=== PATIENT | female | born 1970 | race Caucasian/White ===

== ENCOUNTER 2017-08-16 09:12 | Inpatient (IN) ==
[2017-08-16] MEDS ORDERED: CeFAZolin Pre 2,000 MG/100 ML 2,000 MG/100 ML BAG IVPB ONE (09:32)
[2017-08-16] MEDS ORDERED: Lidocaine -MPF 1% 2 ML VIAL ID ONE (09:32)
[2017-08-16] MEDS ORDERED: Ringers Solution, Lactated 1,000 ML IVC SCH (09:45)
--- NOTE | 2017-08-16 09:49 | Anesthesia Evaluation PreOp ---
Date of Encounter: 08/16/17 Time of Encounter: 09:56 - Past History Planned Operation: LAVH Cardiac History: Denies any Significant Hx Pulmonary History: Denies Any Significant HX LINUX SUPPORT ENGINEER History: Denies Any Significant HX Other Medical History: Denies Any Significant HX Anesthesia History: No Prior Anesthetic Complications, Past Anesthesia Test: Negative (08/12/2017) Alcohol Use: none Drug use: none Medications and Allergies Fluticasone Propionate Nasal [Flonase] 120 spray NS DAILY #1 bottle 08/01/17 [Rx ] Loratadine/Pseudophed (12 HR) [Claritin D (12HR)] 1 each PO BID #20 tab.er.12h 08/01/17 [Rx] Magic Mouthwash [Magic Mouthwash BLM] 10 ml PO QID #240 ml 08/01/17 [Rx] 3 Allergy/AdvReac Type Severity Reaction Status Date / Time No Known Allergies Allergy Verified 08/01/17 13:49 - Meds/Allergy Pre-op Review Medications Reviewed: Yes Allergies Reviewed: Yes Beta Blockers on Current Med List: No Anesthesia Results - Labs Laboratory Tests 04/23/17 08/12/17 08/12/17 12:39 08:20 08:20 WBC 7.2 Hgb 11.9 Hct 37.4 Plt Count 352 Sodium 141 Potassium 3.3 L BUN 7 Creatinine 0.73 Serum , Qual Negative Anesthesia Exam O2 Sat Height 1.63 m Height 1.63 m Height 1.63 m Weight 79.379 kg Weight 79.379 kg Weight 79.379 kg O2 Sat by Pulse Oximetry 99 Vital Signs Temp Pulse Resp BP Pulse Ox 97.9 F 83 18 124/81 99 08/16/17 09:58 08/16/17 09:58 08/16/17 09:58 08/16/17 09:58 08/16/17 09:58 Height: 5'4'' Weight: 175 lbs NPO (# of Hours): 8 Pain Scale: 0 Pain Scale Used: Numeric (1 - 10) - HEENT Pupil (Motor): EOMI Mallampati: II Teeth: Normal Oral Opening: Greater than 3 - LINUX SUPPORT ENGINEER LOC: Oriented LINUX SUPPORT ENGINEER Motor: Normal RUE, Normal LUE, Normal RLE, Normal LLE, Normal Face LINUX SUPPORT ENGINEER Sensory: Normal: RUE, LUE, RLE, LLE, Face - Cardiac Rhythm: Regular Murmur: None - Pulmonary Breath Sounds: bilateral Clear Respiratory Effort: Symmetrical Anesthesia Assess/Plan ASA Score: 1 Modified Samara Scale for Level of Consciousness: Cooperative, oriented, and tranquil Anesthetic Plan: General Monitoring Plan: Standard Monitors Recovery Plan: PACU
[2017-08-16] MEDS ORDERED: *HR* FentaNYL (PF) 100 MCG/2 ML VIAL ONE (10:17)
[2017-08-16] MEDS ORDERED: Neostigmine Methylsulfate 3 MG/3 ML SYRINGE ONE (10:17)
[2017-08-16] MEDS ORDERED: Dexamethasone 4 MG/ML VIAL ONE (10:17)
[2017-08-16] MEDS ORDERED: Ondansetron 4 MG/2 ML VIAL ONE (10:17)
[2017-08-16] MEDS ORDERED: *HR* Propofol 200 MG/20 ML VIAL IVP ONE (10:17)
[2017-08-16] MEDS ORDERED: *HR* Rocuronium Bromide 50 MG/5 ML VIAL ONE ×2 (10:17)
[2017-08-16] MEDS ORDERED: *HR* Phenylephrine 10 MG/ML VIAL ONE (10:17)
[2017-08-16] MEDS ORDERED: Lidocaine -MPF 4% 5 ML AMPUL ONE ×2 (10:17)
[2017-08-16] MEDS ORDERED: Ketorolac 30 MG/ML VIAL ONE (10:17)
[2017-08-16] MEDS ORDERED: *HR* Midazolam HCl 2 MG/2 ML VIAL ONE (10:17)
[2017-08-16] MEDS ORDERED: Lidocaine -MPF 2% 2 ML VIAL ONE (10:17)
[2017-08-16] MEDS ORDERED: *HR* Succinylcholine 200 MG/10 ML VIAL IVP ONE (10:17)
--- NOTE | 2017-08-16 10:33 | History & Physical Report ---
Date of Encounter: 08/16/17 Time of Encounter: 10:32 24 Hour HP Update - Instructions Instructions: If the History and Physical is less than 30 days old and was completed prior to A.M. admission and or procedure and has NOT been updated on calendar day of procedure please complete this update prior to performing procedure. - Update Patient reports changes in Medical Condition: No Changes in examination, assessment, or condition: No Changes in Medication: No Preop tests/diagnostics Reviewed: No Surgery Remains Indicated: Yes Consent for Planned Operative Procedure(s) Verified: Yes - Pre-Operative Checklist Preoperative Checklist Indicated: Yes Prophylactic Antibiotic Ordered: Yes Home Medications Include Beta Darek: No Beta Darek Taken Today (Day of Surgery): No Beta Darek Taken Yesterday (Day Prior to Surgery): No Is VTE Prophylaxis Indicated?: Yes
[2017-08-16] MEDS ORDERED: Lidocaine/EPI 1:100k 1% 20 ML VIAL ONE (10:43)
[2017-08-16 12:47] LABS: Basophils # 0.1 K/mcL (0.0-0.2); Basophils % 0.8 %; Eosinophils # 0.3 K/mcL (0.0-0.6); Hematocrit 36.6 % (35.3-44.9); Hemoglobin 11.2 g/dL (11.5-15.4); Immature Granulocytes % 0.3 % (0-4); Lymphocytes # 2.1 K/mcL (0.6-4.6); Lymphocytes % 29.7 %; Mean Corpuscular HGB Conc 30.6 g/dL (31.6-35.5); Mean Corpuscular Volume 88.2 fL (83.0-100.0); Mean Platelet Volume 10.3 fL (9.4-12.4); Monocytes # 0.4 K/mcL (0.0-1.3); Monocytes % 5.3 %; Neutrophils # 4.3 K/mcL (1.6-8.9); Platelet Count 268 K/mcL (140-400); Red Blood Count 4.15 M/mcL (3.82-4.97); Red Cell Distribution Width 13.3 % (11.5-14.5); Segmented Neutrophils % 59.9 %
[2017-08-16 12:55] LABS: BUN/Creatinine Ratio 9 (6-26); Blood Urea Nitrogen 7 mg/dL (7-20); Calcium 8.4 mg/dL (8.6-10.8); Carbon Dioxide 14 mEq/L (19-29); Chloride 112 mEq/L (98-109); Glucose 104 mg/dL (70-99); Osmolality,Calculated 282 (280-300); Potassium 4.1 mEq/L (3.5-4.5); Sodium 137 mEq/L (136-145); eGFR For African Americans > 60 (> 60); eGFR For Non-African Americans > 60 (> 60)
--- NOTE | 2017-08-16 15:09 | Electrocardiograph Report ---
[place] [id number] Test Date: 2017-08-16 Pat Name: Brenda Forbes Department: 106 Room: Gender: F Shank Burnisher: MELONIE : 1970 Requested By: Uriah Hay Order Number: [id number] Reading MD: Conor Bowen MD Measurements Intervals [place] Rate: 78 P: 58 [place]: 146 QRS: 16 QRSD: 92 T: 24 QT: 392 QTc: 426 Interpretive Statements SINUS RHYTHM Electronically Signed On 08-16-2017 15:08:05 EDT by Conor Bowen MD
--- NOTE | 2017-08-16 16:30 | OB/GYN Procedure Note ---
OB-HORN PLAYER: Procedure - Diagnosis Date of procedure: 08/16/17 Pre-op diagnosis: Enlarged fibroid uterus, menometrorrhagia, iron deficiency anemia Post-op diagnosis: other (Profound bradycardia during seizure after insufflation ) - Procedure Procedure: Diagnostic laparoscopy with insertion of 3 trochars during attempted hyster Surgeon: Uriah Hay Recovery Coordinator: Beatriz Graves Anesthesia Type: General Estimated blood loss (cc): 5 Fluids: crystalloid Specimens collected: None Disposition: PACU Findings: Enlarged fibroid uterus normal fallopian tubes and ovaries Narrative: Patient is a 47-year-old female with enlarged fibroid uterus very heavy prolonged menstrual cycles. Has required iron transfusions secondary to profound anemia. She is failed conservative medical and hormonal management. She presents for laparoscopic-assisted vaginal hysterectomy with desire for ovarian preservation. She was aware of operative risks and signed appropriate consent. Description procedure: Patient was taken operating room where general anesthesia was administered. She is prepped draped in usual sterile fashion in low dorsolithotomy position. Cervix is visualized and grasped with single- tooth tenaculum. [place] uterine manipulator was placed in the cervix. 5 mm trocar was inserted below the umbilicus without difficulty. Under direct visualization second 5 mm trochars placed in the right mid abdomen and third 5 mm trochars placed in the left mid abdomen. Insufflation was performed. During insufflation anesthesia informed me of profound bradycardia to less than 30's. Pneumoperitoneum was immediately released and heart rate immediately improved to sinus rhythm in the 70s. Decision was made to again performed insufflation manually after performing insufflation again patient had profound bradycardia. Consideration was made to proceed immediately with laparotomy with hopes that she would tolerate this better. I did not attempt to speak with patient's but he was not available and was unable to be reached on cell phone. I did decide to cancel procedure until cardiac evaluation was performed. Trochars removed and skin edges were approximated with 4-0 Vicryl. All sponge counts counts are correct patient was taken recovery in good condition.
[2017-08-16] MEDS ORDERED: Ondansetron 4 MG/2 ML VIAL IVP PRN (17:11)
[2017-08-16] MEDS ORDERED: Naloxone 0.4 MG/ML INJ IVP PRN (17:11)
[2017-08-16] MEDS ORDERED: *HR* OxyCODONE/APAP 5/325 TABLET PO PRN (17:11)
--- NOTE | 2017-08-16 17:19 | Cardiology Consult Note ---
Date of Encounter: 08/16/17 Time of Encounter: 17:15 Assessment and Plan (1) Bradyarrhythmia on pre-operative cardiovascular examination Current Visit: Yes Status: Acute Per Cardiology: Reported bradycardia intraoperatively during insufflation for laparoscopic hysterectomy on 2 separate occurrences. ECG shows sinus rhythm in the 70s. No rhythm strips available for review. Currently not on telemetry. Recommend transfer to bed available for telemetry monitoring overnight. We'll check TSH. Check echo. Recent test negative. Further recommendations pending results. Discussed and reviewed with Dr. Loera. (2) DUB (dysfunctional uterine bleeding) Current Visit: No Status: Acute Per Cardiology: Per OB mangement. Discussion w patient/family: The assessment and plan as outlined above was discussed with the patient and/or family members who expressed understanding and agreement. All questions were answered. Thank you for involving us in the care of your patient. Please call with any questions. History of Present Illness Consult date: 08/16/17 Consult reason: Bradycardia Chief complaint: Low Hr in surgery History of present illness: Ms. Forbes is a 47 year old female with a relevant past medical history of dysfunctional uterine bleeding pending hysterectomy and iron deficiency anemia. Cardiology consult for episodes of bradycardia intraoperatively laparoscopic hysterectomy during insufflation x 2. Surgery postponed. Patient reports pending open surgery tomorrow. Prior to surgery she denies any chest pain, short of breath, palpitations. Reports chronic fatigue she attributes to her anemia due to abnormal uterine bleeding. She denies any smoking history. Reports history of "nodule on her thyroid" follows with outside facility and not taking medication for hypothyroidism. She denies any history of bradycardia or abnormal arrhythmias. Denies any palpitations, dizziness, syncope. Family history with father with ND in his 60s. Past Med Surg Social Fam HX - Past Medical History Attestation: Yes The following information was validated with the patient. Source: patient, old records reviewed, obtained from family Medical history: non-contributory, other (anemia) Psychiatric history: no psych history - Past Surgical History Surgical History: no surgical history - Social History Smoking Status: Unknown if ever smoked Smokeless Tobacco Status: No Alcohol use: none Drug use: none Medications and Allergies Ferrous Sulfate 325 mg PO DAILY 08/16/17 [History] 3 Allergy/AdvReac Type Severity Reaction Status Date / Time No Known Allergies Allergy Verified 08/16/17 10:16 All Systems Review: A 10-system review of systems was performed and is negative for pertinent findings except as documented above in the HPI. - Cardiovascular Cardiovascular: as per HPI Physical Examination Vital Signs, Last 4 Hours Temp Pulse Resp BP Pulse Ox 08/16/17 15:00 94 16 120/80 97 08/16/17 14:30 72 16 126/78 100 08/16/17 13:52 97.4 F L 82 16 121/79 99 08/16/17 13:37 97.5 F L 82 18 138/94 99 08/16/17 13:27 74 16 122/78 100 08/16/17 13:17 81 18 126/85 100 General: Conversant, No Apparent Distress HEENT: Atraumatic, Normocephaly, Mucus Membranes Moist Neck: No JVD, Normal carotid pulses Cardiac: Reg Rate and Rhythm, Normal S1 and S2, No Murmur Lungs: Normal Breath Sounds, No Wheeze, Rales, Rhonchi Neuro: Alert and responsive, No focal deficits noted Abdomen: Soft, Non-Tender Skin: No rashes noted on visualized skin Musculoskeletal: No Chest Wall Tenderness Extremities: No Clubbing, No Cyanosis, No Edema, Normal Pulses Results 08/16/17 12:34 08/16/17 12:34 Lab Results Laboratory Tests 08/12/17 08:20 Serum , Qual Negative - Imaging and Cardiology Echo: pending - EKG Interpretation EKG results cardiology: personally reviewed, normal ECG, sinus rhythm, other ( Not currently on telemetry, no rhythm strips noted from OR) Consult Discharge Plan - Plan Referrals: Ese Cobb, HUMAN RESOURCE ADVISER [Primary Care Provider] -
--- NOTE | 2017-08-16 22:21 | Internal Med History&Physical ---
Date of Encounter: 08/16/17 Time of Encounter: 21:50 Assessment and Plan (1) Bradyarrhythmia on pre-operative cardiovascular examination Current visit: Yes Status: Acute Cardiology on board admission to medicine requested for tele monitoring current NSR continue to closely monitor (2) Iron deficiency Current visit: No Status: Chronic H&H low but acceptable continue to monitor (3) Anemia Current visit: No Status: Chronic Qualifiers: Anemia type: iron deficiency Iron deficiency anemia type: chronic blood loss Qualified Code(s): D50.0 - Iron deficiency anemia secondary to blood loss (chronic) (4) DUB (dysfunctional uterine bleeding) Current visit: No Status: Acute Scheduled for hysterectomy in am (later in the day) care rep following NPO after breakfast as per prompt care rn recommendations (5) DVT prophylaxis Current visit: Yes Status: Acute SCD and early ambulation Internal Medicine - H&P: HPI Chief complaint: transferred from care rep service for bradycardia Admitted From: Home Plans for Post Hospital Care: Home History of present illness: Ms. Forbes is a 47 year old female with history of dysfunctional uterine bleeding secondary to fibroids and iron deficiency anemia who is transferred from prompt care rn service for bradycardia. Patient was scheduled for hysterectomy today and she was found to be bradycardic intraoperatively laproscopic hysterectomy during insufflation, due to which surgery was postponed and cardiology consultation was requested. As per cardiology recommendation, tele monitoring overnight was recommended and patient was requested admission to medicine floor. Patient is noted to be in sinus rhythm, denies any headache, chest pain, palpitations, sob, abd pain, n/v, fever, or chills. Social history: never smoker Code status: Full code Past Med Surg Social Fam HX - Past Medical History Medical history: non-contributory, other (anemia) Psychiatric history: no psych history - Past Surgical History Surgical History: no surgical history - Social History Smoking Status: Unknown if ever smoked Smokeless Tobacco Status: No Alcohol use: none Drug use: none Internal Medicine - H&P: Meds Ferrous Sulfate 325 mg PO DAILY 08/16/17 [History] 3 Allergy/AdvReac Type Severity Reaction Status Date / Time No Known Allergies Allergy Verified 08/16/17 10:16 All Systems PM: A 10-system review of systems was performed and is negative for pertinent findings except as documented above in the HPI. - Constitutional Constitutional: as per HPI - Constitutional Vitals: Temp Pulse Resp BP Pulse Ox 98.2 F 106 16 133/84 98 08/16/17 19:00 08/16/17 19:00 08/16/17 19:00 08/16/17 19:00 08/16/17 19:00 General appearance: Present: cooperative, A&O X 3, no acute distress, answers questions appropriately - Head Head exam: Present: atraumatic, normocephalic - Eye Eye exam: Present: conjuntiva pink, sclera anicteric - Respiratory Respiratory exam: Present: CTAB. Absent: accessory muscle use, rales, rhonchi, wheezes - Cardiovascular Cardiovascular exam: Present: RRR, +S1, +S2. Absent: diastolic murmur, gallop, rubs, systolic murmur - GI/Abdominal GI/Abdominal exam: Present: normal bowel sounds, soft, no peritoneal signs. Absent: distended, tenderness - Extremities Exam Extremities exam: Present: warm, radial pulses palpable and symmetrical. Absent : calf tenderness, cyanotic, pedal edema - Neurological Exam Neurological exam: Present: alert, oriented X3 - Psychiatric Psychiatric exam: Present: normal affect, normal mood Internal Med - H&P Results - Labs CBC & Chem 7: 08/16/17 12:34 08/16/17 12:34 Labs: Short CBC 08/16/17 Range/Units 12:34 WBC 7.2 (4.3-11.1) K/mcL Hgb 11.2 L (11.5-15.4) g/dL Hct 36.6 (35.3-44.9) % Plt Count 268 (140-400) K/mcL Neutrophils # 4.3 (1.6-8.9) K/mcL BMP 08/16/17 12:34 Sodium 137 Potassium 4.1 Chloride 112 H Carbon Dioxide 14 L BUN 7 Creatinine 0.74 Glucose 104 H Calcium 8.4 L - VTE Documentation of Mechanical Device: Intermittent pneumatic compression device
[2017-08-16] MEDS: Ondansetron 4 MG/2 ML VIAL IVP SCH (23:32)
[2017-08-17 04:33] LABS: Basophils # 0.1 K/mcL (0.0-0.2); Basophils % 0.6 %; Eosinophils % 0.3 %; Hematocrit 34.6 % (35.3-44.9); Hemoglobin 11.1 g/dL (11.5-15.4); Immature Granulocytes % 0.3 % (0-4); Lymphocytes # 1.7 K/mcL (0.6-4.6); Lymphocytes % 19.2 %; Mean Corpuscular HGB Conc 32.1 g/dL (31.6-35.5); Mean Corpuscular Hemoglobin 27.8 pg (28.0-33.3); Mean Corpuscular Volume 86.7 fL (83.0-100.0); Mean Platelet Volume 10.6 fL (9.4-12.4); Monocytes # 0.7 K/mcL (0.0-1.3); Monocytes % 7.8 %; Neutrophils # 6.5 K/mcL (1.6-8.9); Platelet Count 317 K/mcL (140-400); Red Blood Count 3.99 M/mcL (3.82-4.97); Red Cell Distribution Width 13.4 % (11.5-14.5); Segmented Neutrophils % 71.8 %
[2017-08-17 04:47] LABS: BUN/Creatinine Ratio 12 (6-26); Blood Urea Nitrogen 9 mg/dL (7-20); Calcium 8.6 mg/dL (8.6-10.8); Carbon Dioxide 21 mEq/L (19-29); Chloride 109 mEq/L (98-109); Glucose 107 mg/dL (70-99); Osmolality,Calculated 287 (280-300); Phosphorous 2.9 mg/dL (2.3-4.7); Potassium 3.7 mEq/L (3.5-4.5); Sodium 139 mEq/L (136-145); eGFR For African Americans > 60 (> 60); eGFR For Non-African Americans > 60 (> 60)
[2017-08-17] MEDS: Ondansetron 4 MG/2 ML VIAL IVP SCH ×3 (04:52→16:08)
--- NOTE | 2017-08-17 08:59 | Cardiology Progress Note ---
Date of Encounter: 08/17/17 Time of Encounter: 09:00 Assessment and Plan (1) Bradyarrhythmia on pre-operative cardiovascular examination Current Visit: Yes Status: Acute Per Cardiology: Reported bradycardia intraoperatively during insufflation for laparoscopic hysterectomy on 2 separate occurrences. ECG shows sinus rhythm in the 70s. Telemetry showed no bradycardic events overnight with average heart rate in the 70s and lowest rate 58. TSH and magnesium stable. Echo showed EF 60%, no significant valvular dysfunction, NSWMA, mild diastolic dysfunction. Cardiology will sign off, recalls as needed, follow-up with PCP. All questions answered. (2) DUB (dysfunctional uterine bleeding) Current Visit: Yes Status: Acute Per Cardiology: Per OB mangement. Pending surgery today. Discussion w patient/family: The assessment and plan as outlined above was discussed with the patient who expressed understanding and agreement. All questions were answered. Thank you for involving us in the care of your patient. Please call with any questions. Subjective Principal diagnosis: Bradycardia Interval history: Patient denies any concerns or complaints overnight. Reports pending surgery this evening. Objective Vital Signs, Last 4 Hours Temp Pulse Resp BP Pulse Ox 08/17/17 08:50 96 08/17/17 07:34 98.5 F 79 16 129/83 96 General: Conversant, No Apparent Distress Cardiac: Reg Rate and Rhythm, Normal S1 and S2, No Murmur Extremities: No Edema Results 08/17/17 03:31 08/17/17 03:31 Lab Results Laboratory Tests 08/17/17 08/17/17 03:31 03:31 Magnesium 2.0 TSH 0.379 Active Medications Docusate Sodium (Colace) 100 mg PO BID [facility] Stop: 02/15/18 21:01 Last Admin: 08/17/17 08:46 Dose: Not Given Naloxone HCl (Narcan) 0.4 mg IVP Q2MIN PRN PRN Reason: Opioid Reversal Stop: 02/15/18 17:12 Ondansetron HCl (Zofran) 4 mg IVP ONCE PRN PRN Reason: Nausea And Vomiting Stop: 02/15/18 17:12 Ondansetron HCl (Zofran) 4 mg IVP Q6HR OG PRN Reason: Protocol Stop: 02/16/18 00:01 Last Admin: 08/17/17 04:52 Dose: Not Given Oxycodone/Acetaminophen (Percocet 5/325) 1 each PO Q4HR PRN PRN Reason: Severe Pain (7-10) Stop: 02/15/18 17:12 - Imaging and Cardiology Echo: report reviewed - EKG Interpretation EKG results cardiology: other (SR on tele, avg HR 76, lowest 58, currently SR 74 ) - VTE Documentation of Mechanical Device: Intermittent pneumatic compression device Consult Discharge Plan - Plan Referrals: Ese Cobb, RUCHING MACHINE OPERATOR [Primary Care Provider] -
--- NOTE | 2017-08-17 10:16 | Internal Med Progress Note ---
Date of Encounter: 08/17/17 Time of Encounter: 09:15 - Assessment and plan (1) Bradyarrhythmia on pre-operative cardiovascular examination Current Visit: Yes Status: Acute Assessment and plan: Pt with reported bradycardia during preparation for surgical procedure. Cardiology is following. Echocardiogram with LVEF of 60%, normal LV systolic function, evidence of mild LVDD and no significant valvular dysfunction. EKG yesterday showed normal sinus rhythm rate of 78, UT interval 146 QRS 92, QT 392 , QTC 426. Patient denies chest pain, pressure, nausea vomiting, diaphoresis, or shortness of breath. She appears to be normal sinus on the monitor with rate in the 80s. I appreciate cardiology consultation and recommendations. They will be signing off. (2) Iron deficiency Current Visit: No Status: Chronic Assessment and plan: Pt takes Ferrous Sulfate at home. Continue to monitor. (3) Anemia Current Visit: Yes Status: Chronic Assessment and plan: Hgb 11.1 today. Stable and at pt's baseline. 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 Pt to have hysterectomy later today by Dr. Hay. (5) DVT prophylaxis Current Visit: Yes Status: Acute Assessment and plan: SCD and early ambulation. - Time Spent With Patient less than 15 minutes - Subjective Interval history: Pt was seen and assessed at 0915 this a.m. She is alert and oriented, was up eating breakfast, is aware of NPO status for pending OB surgery. She denies chest pain, n/v/d, headache or blurred vision. Reports increased abd tenderness since yesterday, but states that it is still ok. - Constitutional Vitals: Temp Pulse Resp BP Pulse Ox 98.5 F 79 16 129/83 96 08/17/17 07:34 08/17/17 07:34 08/17/17 07:34 08/17/17 07:34 08/17/17 08:50 General appearance: Present: cooperative, A&O X 3, pleasant, no acute distress, answers questions appropriately - Head Head exam: Present: atraumatic, normal inspection, normocephalic - Eye Eye exam: Present: normal appearance, conjuntiva pink, sclera anicteric - Neck Neck exam general surgery: Present: normal inspection, supple, trachea midline. Absent: lymphadenopathy, tenderness - Respiratory Respiratory exam: Present: CTAB. Absent: accessory muscle use, rales, rhonchi, wheezes - Cardiovascular Cardiovascular exam: Present: RRR, +S1, +S2. Absent: diastolic murmur, gallop, rubs, systolic murmur - GI/Abdominal GI/Abdominal exam: Present: normal bowel sounds, soft, tenderness, no peritoneal signs. Absent: distended, guarding, hepatomegaly - Extremities Exam Extremities exam: Present: normal capillary refill, warm, radial pulses palpable and symmetrical. Absent: calf tenderness, cyanotic, pedal edema, tenderness - Neurological Exam Neurological exam: Present: alert, oriented X3, no focal deficits. Absent: facial droop, speech deficit - Skin Skin exam: Present: dry, intact, normal color, warm. Absent: rash Internal Medicine: Result - Labs CBC & Chem 7: 08/17/17 03:31 08/17/17 03:31 Labs: Short CBC 08/16/17 08/17/17 Range/Units 12:34 03:31 WBC 7.2 9.1 (4.3-11.1) K/mcL Hgb 11.2 L 11.1 L (11.5-15.4) g/dL Hct 36.6 34.6 L (35.3-44.9) % Plt Count 268 317 (140-400) K/mcL Neutrophils # 4.3 6.5 (1.6-8.9) K/mcL BMP 08/16/17 08/17/17 12:34 03:31 Sodium 137 139 Potassium 4.1 3.7 Chloride 112 H 109 Carbon Dioxide 14 L 21 BUN 7 9 Creatinine 0.74 0.76 Glucose 104 H 107 H Calcium 8.4 L 8.6 - Impressions Impressions Echocardiogram 08/16/17 17:19 Impressions: LVEF 60%. Normal left ventricular size and systolic function. There is evidence of mild diastolic dysfunction of the left ventricle. Normal right ventricular size and function. No significant valvular dysfunction. No pulmonary hypertension. Left Ventricular Wall Motion: Rest Echo Findings All wall segments showed normal motion. Findings: Study Quality * Technically adequate exam. ECG Findings * Normal sinus rhythm. Left Ventricle * LVEF 60%. * Normal LV chamber size, wall thickness and function. * Mild left ventricular diastolic dysfunction. Right Ventricle * Normal right ventricular structure and function. Left Atrium * Normal left atrial size. Right Atrium * Normal right atrial size. Aortic Valve * No aortic regurgitation. * Trileaflet aortic valve. * Normal aortic valve structure. * No aortic stenosis. Mitral Valve * Normal mitral valve structure. * No mitral regurgitation. * No mitral stenosis. Tricuspid Valve * Tricuspid valve not well visualized. * No tricuspid regurgitation. * Estimated RA pressure is 3 mmHg. Pulmonic Valve * Pulmonic valve is not well visualized. * No pulmonic stenosis. * No pulmonic regurgitation. Pulmonary Artery * Pulmonary artery not well visualized. Aorta * Normally sized aortic root. Pericardium * There is no pericardial effusion present. Interatrial Septum * No evidence of PFO by color Doppler. IVC * Normal IVC dimensions and inspiratory collapse. - VTE Documentation of Mechanical Device: Intermittent pneumatic compression device Consult Discharge Plan - Plan Referrals: Ese Cobb, [employer]PL[employer] PATR[employer] PILOT [Primary Care Provider] -
--- NOTE | 2017-08-17 16:03 | Anesthesia Evaluation PreOp ---
Date of Encounter: 08/17/17 Time of Encounter: 16:01 - Past History Planned Operation: FATUMA Cardiac History: Denies any Significant Hx Pulmonary History: Denies Any Significant HX DRILL GRINDER History: Denies Any Significant HX Other Medical History: Denies Any Significant HX Anesthesia History: No Prior Anesthetic Complications : No Test: Negative (08/12/2017) Alcohol Use: none Drug use: none Medications and Allergies Ferrous Sulfate 325 mg PO DAILY 08/16/17 [History] Fluticasone Propionate Nasal [Flonase] 2 spr NS DAILY 08/17/17 [History] 3 Allergy/AdvReac Type Severity Reaction Status Date / Time tramadol AdvReac Nausea Verified 08/17/17 02:03 - Meds/Allergy Pre-op Review Medications Reviewed: Yes Allergies Reviewed: Yes Beta Blockers on Current Med List: No Anesthesia Results - Labs 08/17/17 03:31 08/17/17 03:31 Echocardiogram Name: Brenda Forbes Date of Study: 08/16/2017 EV/EV echocardiogram Impressions: LVEF 60%. Normal left ventricular size and systolic function. There is evidence of mild diastolic dysfunction of the left ventricle. Normal right ventricular size and function. No significant valvular dysfunction. No pulmonary hypertension. Anesthesia Exam O2 Sat Height 1.63 m Weight 81.692 kg Weight 79.4 kg O2 Sat by Pulse Oximetry 97 O2 Sat by Pulse Oximetry 95 O2 Sat by Pulse Oximetry 96 O2 Sat by Pulse Oximetry 96 O2 Sat by Pulse Oximetry 96 O2 Sat by Pulse Oximetry 99 O2 Sat by Pulse Oximetry 98 O2 Sat by Pulse Oximetry 100 O2 Sat by Pulse Oximetry 97 O2 Sat by Pulse Oximetry 98 Vital Signs Temp Pulse Resp BP Pulse Ox 97.9 F 83 18 124/81 99 08/16/17 09:58 08/16/17 09:58 08/16/17 09:58 08/16/17 09:58 08/16/17 09:58 Height: 5'4'' Weight: 175# NPO (# of Hours): > 8 HRS Pain Scale: 0 Pain Scale Used: Numeric (1 - 10) - HEENT Pupil (Motor): Pupils equal, EOMI Mallampati: II Teeth: Normal Oral Opening: Greater than 3 - DRILL GRINDER LOC: Oriented DRILL GRINDER Motor: Normal RUE, Normal LUE, Normal RLE, Normal LLE, Normal Face DRILL GRINDER Sensory: Normal: RUE, LUE, RLE, LLE, Face - Cardiac Rhythm: Regular Murmur: None JVD: No Carotid Bruit: No - Pulmonary Breath Sounds: bilateral Clear Respiratory Effort: Symmetrical Anesthesia Assess/Plan ASA Score: 1 Modified [place] Scale for Level of Consciousness: Cooperative, oriented, and tranquil Anesthetic Plan: General Autologous Blood: Yes Monitoring Plan: Standard Monitors Recovery Plan: PACU
[2017-08-17] MEDS ORDERED: *HR* Propofol 200 MG/20 ML VIAL IVP ONE (16:25)
[2017-08-17] MEDS ORDERED: *HR* FentaNYL (PF) 100 MCG/2 ML VIAL ONE ×2 (16:25→18:03)
[2017-08-17] MEDS ORDERED: Lidocaine -MPF 2% 2 ML VIAL ONE (16:25)
[2017-08-17] MEDS ORDERED: Ondansetron 4 MG/2 ML VIAL ONE (16:25)
[2017-08-17] MEDS ORDERED: *HR* Midazolam HCl 2 MG/2 ML VIAL ONE (16:25)
[2017-08-17] MEDS ORDERED: *HR* Rocuronium Bromide 50 MG/5 ML VIAL ONE (16:25)
[2017-08-17] MEDS ORDERED: EPHEDrine 50 MG/ML VIAL ONE (18:06)
[2017-08-17] MEDS ORDERED: *HR* Labetalol 20 MG/4 ML SYRINGE IVP PRN (18:24)
[2017-08-17] MEDS ORDERED: *HR* Meperidine 25 MG/ML SYRINGE IVP PRN (18:24)
[2017-08-17] MEDS ORDERED: *HR* HYDROmorphone 2 MG/ML SYRINGE ONE (18:27)
[2017-08-17] MEDS: *HR* HYDROmorphone (PF) 1 MG/ML SYRINGE IVP PRN ×5 (19:44→22:14)
--- NOTE | 2017-08-17 19:53 | OB/GYN Procedure Note ---
Hysterectomy - Diagnosis Date of procedure: 08/17/17 Hysterectomy pre-op: menorrhagia, symptomatic leiomyomata (Anemia), other Post-op diagnosis: same - Procedure Hysterectomy procedure: total abdominal hysterectomy, bilateral salpingectomy Surgeon: Uriah Hay Volunteer Coordinator: Beatriz Graves Anesthesia Type: General Estimated blood loss (cc): 250 Complications: none Fluids: crystalloid Specimens: uterus, right fallopian tube, left fallopian tube Findings: Enlarged fibroid uterus Disposition: PACU Narrative: Patient's a 47-year-old female with known enlarged fibroid uterus with very heavy menstrual cycles that were prolonged and she had resultant iron deficiency anemia. She had failed conservative medical management. Attempt just very been performed for laparoscopic-assisted vaginal hysterectomy however she had profound bradycardia and this was not tolerated. She had cardiology workup today which was negative therefore procedure total abdominal hysterectomy. She was aware of operative risks and signed appropriate consent. Description procedure: Patient was taken operating room where general anesthesia was administered she is prepped draped in usual sterile fashion bladder was drained of clear urine. Scalp was used to make pain still skin incision which was sharply taken down the rectus fascia. Fascia was incised midline fascial incision was extended bilaterally. Peritoneum was entered sharply and peritoneal incision was extended. [place] self- retaining retractor was placed and bowel were packed out of the operative field. Uterus was identified and was enlarged both ovaries and fallopian tubes are normal.the cornua the uterus were grasped with curved Sheryl clamps and each side the right fallopian tube was pulled upwards and cauterized and transected with LigaSure. I then cauterized and transected the utero-ovarian ligament on the right side as well as the round ligament and broad ligament. Left fallopian tube was then pulled towards midline mesosalpinx was cauterized and transected. Utero-ovarian ligament on the left side was cauterized and transected did with LigaSure. Round ligament and broad ligament on the left side were cauterized and transected with LigaSure. This point bladder flap was taken down. I did used the Bovie to transect the cervix across the internal cervical os and uterus was removed. Straight Sheryl clamps were used along the edges of cervix on each side within performed transection with with scalpel and ligated with 0 Vicryl suture. Curved Sheryl clamps were then taken along the upper vagina along the cervix on each side and sequential manner transected and ligated with 0 Vicryl suture irrigation was performed hemostasis was ensured. Fascia was closed with 0 Vicryl. Skin edges reapproximated with masood. All sponge and instruments counts are correct patient was taken recovery in good condition.
[2017-08-17] MEDS ORDERED: cloNIDine HCl 0.1 MG TABLET PO ONE (20:24)
[2017-08-17] MEDS ORDERED: Gabapentin 300 MG CAPSULE PO ONE (20:24)
[2017-08-17] MEDS ORDERED: Acetaminophen IV 1,000 MG/100 ML INFUS..BTL IVPB ONE (20:24)
--- NOTE | 2017-08-17 21:10 | Anesthesia Evaluation Post Op ---
Date of Encounter: 08/17/17 Time of Encounter: 21:08 - Vital Signs Vital Signs: Vital Signs/O2 Sat/Glucose, Most Current Temp Pulse Resp BP Pulse Ox 08/17/17 20:55 95 20 126/95 97 08/17/17 20:45 80 16 131/94 96 08/17/17 20:35 86 14 131/98 97 08/17/17 20:25 86 20 129/99 97 08/17/17 20:15 85 12 136/99 97 08/17/17 20:03 82 14 137/95 98 08/17/17 19:54 97.4 F L 89 16 138/96 96 08/17/17 19:45 99 15 138/102 97 08/17/17 19:35 80 12 147/98 96 08/17/17 19:24 97.2 F L 97 14 133/99 98 - Lungs Lungs: Clear Ascult./Percussion - Airway Airway: Non-obstructed - Cardiovascular Regular Rate - Mental Status Mental Status: Alert & Oriented, Answers Appropriately - Pain Pain Scale: 5 Pain Scale used: Numeric (1 - 10) - Nausea Vomiting Nausea Vomiting: Not Present - Hydration Hydration: Tolerates oral liquids, Jaquez catheter - Discharge PostOp Status: Discharge Patient to home Anes Supervising Prov Stmt: Pt seen/evaluated, VSS and pt has met criteria for discharge to floor. - MD Dustin
[2017-08-17] MEDS ORDERED: Ondansetron 4 MG/2 ML VIAL IVP PRN (21:49)
[2017-08-17] MEDS ORDERED: Naloxone 0.4 MG/ML INJ IVP PRN (21:49)
[2017-08-17] MEDS: Ringers Solution, Lactated 1,000 ML IVC SCH (22:14)
[2017-08-18] MEDS: *HR* OxyCODONE/APAP 5/325 TABLET PO PRN ×3 (01:19→20:02)
[2017-08-18] MEDS: *HR* HYDROmorphone (PF) 1 MG/ML SYRINGE IVP PRN ×2 (04:10→10:06)
[2017-08-18] MEDS: Ringers Solution, Lactated 1,000 ML IVC SCH ×2 (04:19→13:08)
[2017-08-18 04:26] LABS: Basophils % 0.2 %; Hematocrit 30.2 % (35.3-44.9); Hemoglobin 9.8 g/dL (11.5-15.4); Immature Granulocytes % 0.3 % (0-4); Lymphocytes # 0.9 K/mcL (0.6-4.6); Lymphocytes % 7.7 %; Mean Corpuscular HGB Conc 32.5 g/dL (31.6-35.5); Mean Corpuscular Hemoglobin 28.1 pg (28.0-33.3); Mean Corpuscular Volume 86.5 fL (83.0-100.0); Mean Platelet Volume 10.6 fL (9.4-12.4); Monocytes # 0.9 K/mcL (0.0-1.3); Monocytes % 7.8 %; Neutrophils # 9.8 K/mcL (1.6-8.9); Platelet Count 301 K/mcL (140-400); Red Blood Count 3.49 M/mcL (3.82-4.97); Red Cell Distribution Width 13.5 % (11.5-14.5)
[2017-08-18] MEDS ORDERED: Fluticasone Propionate Nasal 50 MCG/SPRAY BOTTLE NS SCH (09:00)
--- NOTE | 2017-08-18 13:03 | OB/GYN Progress Note ---
Date of Encounter: 08/18/17 Time of Encounter: 13:01 - Assessment and Plan (1) S/P hysterectomy Current Visit: Yes Status: Acute doing well with typical post op course. No further cardiac problems. Will t/f to 1 NE 29. Cont post op care. Subjective - Subjective Principal diagnosis: s/p hysterectomy Interval history: Doing well s/p hysterectomy. Reg diet without n/v. Ambulating. Fair pain control. No chest pain or palpitations. No syncopal episodes. Objective - Vital Signs Latest vital signs: Vital Signs Temp Pulse Resp BP Pulse Ox 08/18/17 11:35 98.3 F 92 14 99/63 94 08/18/17 07:13 98.5 F 73 15 101/61 98 08/18/17 04:01 98.2 F 78 16 118/73 97 08/18/17 01:04 98.1 F 91 16 121/76 97 08/18/17 00:03 98.3 F 92 16 107/75 97 08/17/17 23:13 98.3 F 98 16 104/73 97 08/17/17 22:46 98.1 F 100 16 119/83 96 08/17/17 22:10 98.3 F 100 16 126/86 95 08/17/17 21:39 97.9 F 91 16 128/86 96 08/17/17 20:55 95 20 126/95 97 08/17/17 20:45 80 16 131/94 96 08/17/17 20:35 86 14 131/98 97 08/17/17 20:25 86 20 129/99 97 08/17/17 20:15 85 12 136/99 97 08/17/17 20:03 82 14 137/95 98 08/17/17 19:54 97.4 F L 89 16 138/96 96 08/17/17 19:45 99 15 138/102 97 08/17/17 19:35 80 12 147/98 96 08/17/17 19:24 97.2 F L 97 14 133/99 98 08/17/17 15:13 98.5 F 78 16 127/84 97 Intake and Output 08/17/17 08/18/17 08/18/17 23:59 07:59 15:59 Intake Total 999 / 999 Output Total 750 / 750 500 / 500 Balance -750 / -750 499 / 499 Intake: IV Fluids 999 / 999 Lactated Ringers 1,000 ML @ 125 999 / 999 mls/hr IVC .Q8H OG Rx#: [id number] Output: Urine 500 / 500 Estimated Blood Loss 250 / 250 Catheter 500 / 500 Other: # Voids 1 Weight 83.007 kg Patient Weight 08/18/17 23:59 Weight 83.007 kg - I&O's I&O's: Intake & Output 08/15/17 08/16/17 08/17/17 08/18/17 23:59 23:59 23:59 23:59 Intake Total 580 / 580 999 / 999 Output Total 650 / 650 750 / 750 500 / 500 Balance -70 / -70 -750 / -750 499 / 499 Weight 79.4 kg 81.692 kg 83.007 kg - Exam Lungs: bilateral: normal Chest: Normal S1, Normal S2 Extremities: Present: normal Abdomen: Present: soft Incision OB: Present: normal, intact, dressed - Labs Labs: Abnormal lab results WBC 11.6 K/mcL (4.3-11.1) H 08/18/17 03:33 RBC 3.49 M/mcL (3.82-4.97) L 08/18/17 03:33 Hgb 9.8 g/dL (11.5-15.4) L 08/18/17 03:33 Hct 30.2 % (35.3-44.9) L 08/18/17 03:33 Neutrophils # 9.8 K/mcL (1.6-8.9) H 08/18/17 03:33 Glucose 107 mg/dL (70-99) H 08/17/17 03:31 POC Glucose 96 (58-89) H 08/17/17 07:33 Consult Discharge Plan - Plan Referrals: Ese Cobb CNP [Primary Care Provider] - Uriah Hay MD [Partnered Physician] -
[2017-08-18] MEDS ORDERED: Ibuprofen 600 MG TABLET PO PRN (14:21)
[2017-08-18] MEDS ORDERED: *HR* HYDROmorphone (PF) 1 MG/ML SYRINGE IVP PRN (14:29)
[2017-08-18] MEDS ORDERED: Naloxone 0.4 MG/ML INJ IVP PRN (14:29)
[2017-08-18] MEDS ORDERED: Ondansetron 4 MG/2 ML VIAL IVP PRN (14:29)
[2017-08-18] MEDS: Ibuprofen 600 MG TABLET PO PRN (16:55)
--- NOTE | 2017-08-18 18:18 | Internal Med Progress Note ---
Date of Encounter: 08/18/17 Time of Encounter: 13:10 - Assessment and plan (1) Bradyarrhythmia on pre-operative cardiovascular examination Current Visit: Yes Status: Acute Assessment and plan: Resolved. Patient had hysterectomy without difficulty or bradycardia today. Dr. Hernandez will be treating patient from here on out. Hospitalists have signed off. (2) Iron deficiency Current Visit: No Status: Chronic Assessment and plan: Pt takes Ferrous Sulfate at home. Continue after discharge. (3) Anemia Current Visit: Yes Status: Chronic Assessment and plan: Hgb 9.8 today. Patient postop today. 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 Hysterectomy by Dr. Hay. (5) DVT prophylaxis Current Visit: Yes Status: Acute Assessment and plan: SCD and early ambulation. - Subjective Interval history: Pt was seen and assessed at 1310 this a.m. She is status post laparoscopic hysterectomy. She is up eating lunch, reports some mild nausea. She is going to be moved to another unit. She had no difficulty with bradycardia during surgery. We have satisfied her medical clearance needs and we have signed off. Thank you for allowing us to see this patient and to consult on her treatment. We will be happy to see patient again as needed. - Constitutional Vitals: Temp Pulse Resp BP Pulse Ox 98.5 F 82 16 117/78 96 08/18/17 16:00 08/18/17 16:00 08/18/17 16:00 08/18/17 16:00 08/18/17 16:00 General appearance: Present: cooperative, A&O X 3, pleasant, no acute distress, answers questions appropriately - Head Head exam: Present: atraumatic, normal inspection, normocephalic - Eye Eye exam: Present: normal appearance, conjuntiva pink, sclera anicteric - Neck Neck exam general surgery: Present: normal inspection, supple, trachea midline. Absent: lymphadenopathy, tenderness - Respiratory Respiratory exam: Present: CTAB. Absent: accessory muscle use, rales, rhonchi, wheezes - Cardiovascular Cardiovascular exam: Present: RRR, +S1, +S2. Absent: diastolic murmur, gallop, rubs, systolic murmur - GI/Abdominal GI/Abdominal exam: Present: distended, hypoactive bowel sounds, soft, no peritoneal signs. Absent: tenderness Additional comments: Abdomen distended postop. - Extremities Exam Extremities exam: Present: normal inspection, warm, radial pulses palpable and symmetrical. Absent: calf tenderness, cyanotic, pedal edema, tenderness - Neurological Exam Neurological exam: Present: alert, oriented X3, no focal deficits. Absent: facial droop, speech deficit - Skin Skin exam: Present: dry, intact, normal color, warm. Absent: rash Internal Medicine: Result - Labs CBC & Chem 7: 08/18/17 03:33 08/17/17 03:31 Labs: Short CBC 08/18/17 Range/Units 03:33 WBC 11.6 H (4.3-11.1) K/mcL Hgb 9.8 L (11.5-15.4) g/dL Hct 30.2 L (35.3-44.9) % Plt Count 301 (140-400) K/mcL Neutrophils # 9.8 H (1.6-8.9) K/mcL - VTE Documentation of Mechanical Device: Intermittent pneumatic compression device Consult Discharge Plan - Plan Referrals: Ese Cobb CNP [Primary Care Provider] - Uriah Hay MD [Partnered Physician] -
[2017-08-19] MEDS: Ibuprofen 600 MG TABLET PO PRN (01:10)
[2017-08-19 05:35] VITALS: BP 115/75
--- NOTE | 2017-08-19 07:34 | Discharge Summary ---
Date of Encounter: 08/19/17 Time of Encounter: 07:34 - Discharge Diagnosis (1) S/P hysterectomy Priority: Primary Status: Acute Comments: s/p hysterectomy, doing well - Discharge Medications Prescriptions: OxyCODONE/APAP 5/325 [Percocet 5/325 MG] 1 each PO Q4HR PRN #40 tablet PRN Reason: Severe Pain (7-10) Ibuprofen [Motrin] 600 mg PO Q6HR PRN #40 tablet PRN Reason: Pain Home Medications: Ferrous Sulfate 325 mg PO DAILY 08/16/17 [History] Fluticasone Propionate Nasal [Flonase] 2 spr NS DAILY 08/17/17 [History] Ibuprofen [Motrin] 600 mg PO Q6HR PRN #40 tablet 08/19/17 [Rx] OxyCODONE/APAP 5/325 [Percocet 5/325 MG] 1 each PO Q4HR PRN #40 tablet 08/19/17 [Rx] Allergies/Adverse Reactions: 3 Allergy/AdvReac Type Severity Reaction Status Date / Time tramadol AdvReac Nausea Verified 08/17/17 02:03 Data Procedures and tests throughout hospitalization: Laboratory Tests 08/16/17 08/16/17 08/17/17 12:34 12:34 03:31 WBC 7.2 RBC 4.15 Hgb 11.2 L Hct 36.6 MCV 88.2 MCH 27.0 L MCHC 30.6 L RDW 13.3 Plt Count 268 MPV 10.3 Immature Gran % 0.3 Seg Neutrophils % 59.9 Lymphocytes % 29.7 Monocytes % 5.3 Eosinophils % 4.0 Basophils % 0.8 Neutrophils # 4.3 Lymphocytes # 2.1 Monocytes # 0.4 Eosinophils # 0.3 Basophils # 0.1 Sodium 137 Potassium 4.1 Chloride 112 H Carbon Dioxide 14 L BUN 7 Creatinine 0.74 Est GFR ( Amer) > 60 Est GFR (Non-Af Amer) > 60 BUN/Creatinine Ratio 9 Glucose 104 H POC Glucose Calculated Osmolality 282 Calcium 8.4 L Phosphorus Magnesium TSH 0.379 08/17/17 08/17/17 08/17/17 03:31 03:31 07:33 WBC 9.1 RBC 3.99 Hgb 11.1 L Hct 34.6 L MCV 86.7 MCH 27.8 L MCHC 32.1 RDW 13.4 Plt Count 317 MPV 10.6 Immature Gran % 0.3 Seg Neutrophils % 71.8 Lymphocytes % 19.2 Monocytes % 7.8 Eosinophils % 0.3 Basophils % 0.6 Neutrophils # 6.5 Lymphocytes # 1.7 Monocytes # 0.7 Eosinophils # 0.0 Basophils # 0.1 Sodium 139 Potassium 3.7 Chloride 109 Carbon Dioxide 21 BUN 9 Creatinine 0.76 Est GFR ( Amer) > 60 Est GFR (Non-Af Amer) > 60 BUN/Creatinine Ratio 12 Glucose 107 H POC Glucose 96 H Calculated Osmolality 287 Calcium 8.6 Phosphorus 2.9 Magnesium 2.0 TSH 08/17/17 08/18/17 12:35 03:33 WBC 11.6 H RBC 3.49 L Hgb 9.8 L Hct 30.2 L MCV 86.5 MCH 28.1 MCHC 32.5 RDW 13.5 Plt Count 301 MPV 10.6 Immature Gran % 0.3 Seg Neutrophils % 84.0 Lymphocytes % 7.7 Monocytes % 7.8 Eosinophils % 0.0 Basophils % 0.2 Neutrophils # 9.8 H Lymphocytes # 0.9 Monocytes # 0.9 Eosinophils # 0.0 Basophils # 0.0 Sodium Potassium Chloride Carbon Dioxide BUN Creatinine Est GFR ( Amer) Est GFR (Non-Af Amer) BUN/Creatinine Ratio Glucose POC Glucose 99 H Calculated Osmolality Calcium Phosphorus Magnesium TSH Labs on day of discharge: Labs from last 24 hours 08/17/17 12:35 POC Glucose 99 H - Impressions ITS Impressions Echocardiogram 08/16/17 17:19 Impressions: LVEF 60%. Normal left ventricular size and systolic function. There is evidence of mild diastolic dysfunction of the left ventricle. Normal right ventricular size and function. No significant valvular dysfunction. No pulmonary hypertension. Left Ventricular Wall Motion: Rest Echo Findings All wall segments showed normal motion. Findings: Study Quality * Technically adequate exam. ECG Findings * Normal sinus rhythm. Left Ventricle * LVEF 60%. * Normal LV chamber size, wall thickness and function. * Mild left ventricular diastolic dysfunction. Right Ventricle * Normal right ventricular structure and function. Left Atrium * Normal left atrial size. Right Atrium * Normal right atrial size. Aortic Valve * No aortic regurgitation. * Trileaflet aortic valve. * Normal aortic valve structure. * No aortic stenosis. Mitral Valve * Normal mitral valve structure. * No mitral regurgitation. * No mitral stenosis. Tricuspid Valve * Tricuspid valve not well visualized. * No tricuspid regurgitation. * Estimated RA pressure is 3 mmHg. Pulmonic Valve * Pulmonic valve is not well visualized. * No pulmonic stenosis. * No pulmonic regurgitation. Pulmonary Artery * Pulmonary artery not well visualized. Aorta * Normally sized aortic root. Pericardium * There is no pericardial effusion present. Interatrial Septum * No evidence of PFO by color Doppler. IVC * Normal IVC dimensions and inspiratory collapse. 08/19- Doing well, regular diet and ambulating. Will D/c home. Date of admission: 08/17/17 18:00 Primary care physician: Ese Cobb CNP - Patient Status Disposition: Home, Self-Care Condition: Good Functional capacity at discharge: independent ambulation Overall status at discharge: patient is progressing back to baseline - Discharge Instructions Follow Up With: Uriah Hay MD [Partnered Physician] - Additional Instructions: F/u with my nurse next Mon for staple removal. - Diet and Activity Activity: increase activity as tolerated Diet: advance to your usual diet Hospital Course TRAINING PROFESSIONAL Time Attestation: Total time spent providing and/or coordinating discharge services: Exam - Constitutional Vitals: Temp Pulse Resp BP Pulse Ox 98.3 F 92 14 115/75 94 08/19/17 05:30 08/19/17 05:30 08/19/17 05:30 08/19/17 05:30 08/19/17 05:30 General appearance IM: A&O X 3 - Respiratory Respiratory exam: Present: CTAB - Cardiovascular Cardiovascular exam IM: Present: RRR - GI/Abdominal GI/Abdominal exam IM: normal bowel sounds Incision: normal - Extremities Exam Extremities exam IM: Present: full ROM - Neurological Exam Neurological exam: oriented X3 - VTE Documentation of Mechanical Device: Intermittent pneumatic compression device
[2017-08-19] MEDS: *HR* OxyCODONE/APAP 5/325 TABLET PO PRN (07:50)
[2017-08-19] MEDS ORDERED: Fluticasone Propionate Nasal 50 MCG/SPRAY BOTTLE NS SCH (09:00)
== END 2017-08-19 08:33 | disposition home or self-care (01) | DRG 743 ==
LOC: 3BNU 09:12 → SAMDAY 09:12 → 1NENUOBS 15:35 → SAMDAY 16:31 → 1NENUOBS 17:05 → 3BNU 20:44 → 1NENUOBS 08-18 13:42
PROVIDERS: ADMIT Internal Medicine; ATTEND Obstetrics & Gynecology